=== PATIENT | male | born 1980 | race African-American/Black ===

== ENCOUNTER 2017-12-12 09:45 | Emergency (ER) | payer MEDICAID ==
--- NOTE | 2017-12-12 10:09 | EDM.PDOC ---
ED HPI GENERAL MEDICAL PROBLEM - General Chief Complaint: Lower Extremity Injury/Pain Stated Complaint: RIGHT KNEE INJURY Time Seen by Provider: 12/12/17 10:04 Source of Information: Reports: Patient History Limitations: Reports: No Limitations - History of Present Illness INITIAL COMMENTS - FREE TEXT/NARRATIVE: 7-year-old male attends the ED after suffering blunt trauma to his left knee last evening about 1800 hrs. He states he was jumping hurdles at a local high school in [place] and landed directly on his left knee. Pain and swelling of increased overnight to the point that he is limping badly this morning. Basically walking with the knee kept in. There are no open wounds or abrasions or lacerations. He denies injuries to his head neck wristselbows or chest wall. Left knee is normal. No previous surgery to the rt knee. Onset: Sudden Onset Date: 12/11/17 Onset Time: 18:00 Duration: Hour(s): Location: Reports: Lower Extremity, Right (right medial knee.) Quality: Reports: Ache, Throbbing Severity: Moderate Improves with: Reports: Rest (and ice) Worsens with: Reports: Movement (walking) Context: Reports: Activity (tripped and fell while jumping hurdles with direct blow to the right anterior medial knee.) Associated Symptoms: Reports: No Other Symptoms Treatments [employer]GER: Reports: Home Treatments Right Knee Pain Score (Numeric/FACES): 8 - Related Data Allergies Allergy/AdvReac Type Severity Reaction Status Date / Time No Known Allergies Allergy Verified 12/12/17 09:57 Home Meds: Home Meds . [No Known Home Meds] 12/12/17 [History] Past Medical History - Past Surgical History GI Surgical History: Reports: Appendectomy Musculoskeletal Surgical History: Reports: Arthroscopic Knee Social & Family History - Tobacco Use Smoking Status *Q: Current Every Day Smoker Years of Tobacco use: 10 Packs/Tins Daily: 0.2 - Caffeine Use Caffeine Use: Reports: None - Recreational Drug Use Recreational Drug Use: No Review of Systems - Review of Systems Review Of Systems: See Below Constitutional: Reports: No Symptoms Eyes: Reports: No Symptoms Ears: Reports: No Symptoms Nose: Reports: No Symptoms Mouth/Throat: Reports: No Symptoms Respiratory: Reports: No Symptoms Cardiovascular: Reports: No Symptoms GI/Abdominal: Reports: No Symptoms Genitourinary: Reports: No Symptoms Musculoskeletal: Reports: No Symptoms Skin: Reports: No Symptoms Neurological: Reports: No Symptoms Psychiatric: Reports: No Symptoms ED EXAM, GENERAL - Physical Exam Exam: See Below Exam Limited By: No Limitations General Appearance: Alert, WD/WN, No Apparent Distress Extremities: Other (xamination was limited to his right lower extremity. Left lower extremity is completely normal. Hands wrists and elbows were normal as well. On the examination of his right knee there is obvius swelling of the medial distal femoral condyle. There is no true joint effusion. There is no tenderness along the true joint line or MCL LCL distributions. Patellofemoral movement did cause some pain but there is no obvious crepitus. Pain is swelling seems to be limited to the distal medial femur. Medically has a bone bruise.) Neurological: Alert, Oriented, CN II-XII Intact, Normal Cognition. No: Normal Gait Course - Vital Signs Last Recorded V/S: Last Vital Signs Temp 37.2 C 12/12/17 09:54 Pulse 100 12/12/17 09:54 Resp 16 12/12/17 09:54 BP 137/91 H 12/12/17 09:54 Pulse Ox 97 12/12/17 09:54 - Orders/Labs/Meds Orders: Active Orders 24 hr Category Date Time Status Knee 3V Rt [CR] Stat Exams 12/12/17 10:04 Taken - Radiology Interpretation Free Text/Narrative:: 37-year-old male presents the ED after tripping while jumping hurdles last evening about 1800 hrs. He landed with a direct blow to his m right knee. Pain is well localized to the distal medial femoral condyle. No true joint effusion is evident. Ligaments are intact. Clinically suspect contusion with bone bruise to the medial femoral condyle. Plan x-ray need to be done. - Re-Assessments/Exams Free Text/Narrative Re-Assessment/Exam: 12/12/17 10:40x-rays of the right kne are within normal limits showing no fractures Diagnosis is bone bruise to the distal femoral medial condyle.Treatment is rest ice elevation. Motrin 600 mg every 6 hours when necessary for relief of pain and inflammation. Departure - Departure Time of Disposition: 10:40 Disposition: Home, Self-Care 01 Condition: Fair Clinical Impression: Contusion of right knee Qualifiers: Encounter type: initial encounter Qualified Code(s): S80.01XA - Contusion of right knee, initial encounter - Discharge Information Referrals: PCP,None [Primary Care Provider] - Forms: ED Department Discharge Additional Instructions: evaluation the emergency room today in regards to injury to the right knee sustained from blunt trauma during a fall last night. Examination reveals swelling and pain localized to the distal medial femoral condyle.No joint effusion in the knee. Ligaments are intact. X-ray of the knee reveals no bony injuries. Diagnosis is bone bruise to the distal femoral condyle.This area will likely be very tender to touch for the next 10-14 days. Treatment is ice pack to the area one half hour out of every 4 hours today and tomorrow. Motrin 600 mg every 6 hours as needed to reduce pain and inflammation. - My Orders Last 24 Hours: My Active Orders 12/12/17 10:04 Knee 3V Rt [CR] Stat - Assessment/Plan Last 24 Hours: My Active Orders 12/12/17 10:04 Knee 3V Rt [CR] Stat
[2017-12-12] MEDS ORDERED: Ibuprofen 600 MG Tab PO ONE (10:43)
--- NOTE | 2017-12-12 14:14 | CR ---
Right knee: AP, lateral and sunrise patellar views of the right knee were obtained. Comparison: No prior knee exam. Joint spaces are not seen well in profile. Within this limitation, joint spaces are grossly maintained. Patellofemoral joint appears within normal limits. No joint effusion is seen. No discrete fracture or other abnormality is seen. Impression: 1. Joint spaces are not seen well in profile. Within this limitation, no abnormality is definitely appreciated. Diagnostic code #2
== END 2017-12-12 10:57 | disposition home or self-care (01) ==
LOC: JD.ED 09:45
DX: S80.01XA Contusion of right knee, initial encounter (principal); F17.210 Nicotine dependence, cigarettes, uncomplicated; W18.09XA Striking against other object with subsequent fall, initial encounter; Y93.57 Activity, non-running track and field events; Y92.219 Unspecified school as the place of occurrence of the external cause
CPT/HCPCS: 73562; 99283; A9270